=== PATIENT | male | born 1960 | race Caucasian/White ===

== ENCOUNTER 2018-06-15 08:12 | Emergency (ER) | payer OTHER, SELFPAY ==
[2018-06-15 08:19] VITALS: BP 111/86; PULSE 56; RESP 16; TEMP 36.5; O2SAT 99
--- NOTE | 2018-06-15 08:51 | DI.RAD_ITS ---
SYMPTOM/DIAGNOSIS: FELL, PAIN 5TH METACARPAL RIGHT HAND: Three views. There is an acute, mildly displaced oblique fracture through the shaft of the right fifth metacarpal. The fractures appears mildly comminuted. No other acute fracture or dislocation is identified. There is an old fracture of the proximal pole of the scaphoid. There is sclerosis of the small proximal fracture fragment which may represent avascular necrosis. No other fracture or dislocation is seen. There is soft tissue swelling about the hand. Degenerative changes are seen of the hand and wrist. There is chondrocalcinosis of the triangular fibrocartilage. IMPRESSION: Acute, mildly displaced comminuted fracture of the right fifth metacarpal.
--- NOTE | 2018-06-15 11:08 | W.ED.GENAD ---
Discharge Plan Disposition Patient Disposition: HOME Discharge Details Chief Complaint: Orthopedic Clinical Impression: Fracture of fifth metacarpal bone Primary Care Provider: [facility] Provider: Vladimir Martin Home Meds and New Rx's Prescriptions: Continue tramadol 50 MG tablet 50 mg PO BID RF: 0 Discharge Instructions Instructions: Hand Fracture (ED) Additional Instructions: Keep splint intact until you are able to follow-up. Please follow-up with your art therapy specialist. Call on Saturday. Discharge Data Discharge Date/Time-TO BE ENTERED AT DEPARTURE: 06/15/18 12:07 Medical Decision Making Medical Records 58yo m with injury to rt hand. Tender and swollen along 5th MC. N/V intact distal to injury. xray of the rt diane reviewed and interpreted by me: fracture 5th MC. Volar splint with ulnar gutter placed by me with hand in flexion to 90s at MCPs. Patient N/V intact post splint application. Offered local orthopedic follow-up and patient would prefer to f/u with his previously established art therapy specialist. Usual and customary d/c instructions provided including return to ER indications. HPI - General Adult General Date/Time Provider Initiated Documentation: 06/15/18 08:43. Limitations to Documentation: no limitations. Information obtained by: patient. HPI Narrative: 58yo m presents with cc hand pain. Pt fell 9 days ago from standing and caught hand in chair. Has had persistent pain in hand since fall. Pain described as ache. Localized to medial hand. Associated swelling. Pain worse on palpation. Pain not improving. No assoc numbness. Related Data Home Medications Medication Instructions Recorded Confirmed tramadol 50 mg PO BID 01/02/16 06/15/18 Allergies Allergy/AdvReac Type Severity Reaction Status Date / Time environmental Allergy Uncoded 06/15/18 08:22 General Stated Complaint: Orthopedic ALVIN: 4 Review of Systems Musculoskeletal Reports as per HPI Neurologic Reports as per HPI [facility] Social History Smoking/Tobacco Use Status: Former Tobacco Use Exam Const General: cooperative and no acute distress HENMT Head: normocephalic and atraumatic Mouth: moist mucous membranes Eyes Conjunctivae: normal conjunctivae Sclera: normal sclerae EOM: EOM intact bilaterally Neck Neck: trachea midline Cardio Rate: regular rate and not tachycardic Rhythm: regular rhythm Skin General skin exam: no rashes or lesions noted Neuro General: alert, awake, oriented x3 and tone normal Extrem Right upper extremity: hand Details: neuromotor exam normal, tenderness (5th MC) and swelling (medal hand) Psych Appearance: grossly normal Mental Status: mental status grossly normal Speech and Movement: speech and movement normal Course Vital Signs Temperature 36.5 C 06/15/18 08:19 Pulse 56 L 06/15/18 08:19 Respiratory Rate 16 06/15/18 08:19 Blood Pressure 111/86 06/15/18 08:19 Pulse Oximetry 99 06/15/18 08:19 Temperature 36.5 C 06/15/18 08:19 Pulse 56 L 06/15/18 08:19 Respiratory Rate 16 06/15/18 08:19 Blood Pressure 111/86 06/15/18 08:19 Pulse Oximetry 99 06/15/18 08:19
--- NOTE | 2018-06-15 11:18 | DI.VRAD_ITS ---
EXAM: XR Right Hand Complete, 3 or more Views EXAM DATE/TIME: 06/15/2018 8:52 AM CLINICAL HISTORY: 58 years old, male; Pain; Hand; Right TECHNIQUE: XR Right hand 3 or more views. COMPARISON: No relevant prior studies available. FINDINGS: Bones/joints: There is an acute, mildly displaced and comminuted fracture through the fifth metacarpal shaft. No apparent intra-articular involvement. The radiocarpal compartment is mildly narrowed. There appears to be a remote fracture involving the proximal aspect of the scaphoid. Very mild osteophyte formation is present about the first metacarpal phalangeal and multiple interphalangeal joints. Some chondrocalcinosis is noted in the region of the triangular fibrocartilage. Small sclerotic lesion in the distal radius has the appearance of a bone island. Soft tissues: There is associated soft tissue swelling over the ulnar aspect. IMPRESSION: 1. Acute fifth metacarpal fracture. 2. Degenerative changes as described. 3. Chondrocalcinosis, raising the possibility of calcium pyrophosphate dihydrate crystal deposition disease. Dictated and Authenticated by: Rashid Holloway MD. Ordering:BENOIT LEWIS MD
[2018-06-15 12:01] VITALS: BP 139/90; PULSE 50; RESP 16; O2SAT 97
--- NOTE | 2018-06-19 16:54 | ED.GENADUL_ITS ---
Discharge Plan Disposition Patient Disposition: HOME Discharge Details Chief Complaint: Orthopedic Clinical Impression: Fracture of fifth metacarpal bone Primary Care Provider: [facility] ED Provider: Vladimir Martin Home Meds and New Rx's Prescriptions: Continue tramadol 50 MG tablet 50 mg PO BID RF: 0 Discharge Instructions Instructions: Hand Fracture (ED) Additional Instructions: Keep splint intact until you are able to follow-up. Please follow-up with your family services specialist. Call on Saturday. Discharge Data Discharge Date/Time-TO BE ENTERED AT DEPARTURE: 06/15/18 12:07 Medical Decision Making Medical Records 58yo m with injury to rt hand. Tender and swollen along 5th MC. N/V intact distal to injury. xray of the rt diane reviewed and interpreted by me: fracture 5th MC. Volar splint with ulnar gutter placed by me with hand in flexion to 90s at MCPs. Patient N/V intact post splint application. Offered local orthopedic follow-up and patient would prefer to f/u with his previously established family services specialist. Usual and customary d/c instructions provided including return to ER indications. HPI - General Adult General Date/Time Provider Initiated Documentation: 06/15/18 08:43 . Limitations to Documentation: no limitations . Information obtained by: patient . HPI Narrative: 58yo m presents with cc hand pain. Pt fell 9 days ago from standing and caught hand in chair. Has had persistent pain in hand since fall. Pain described as ache. Localized to medial hand. Associated swelling. Pain worse on palpation. Pain not improving. No assoc numbness. Related Data Home Medications Medication Instructions Recorded Confirmed tramadol 50 mg PO BID 01/02/16 06/15/18 Allergies Allergy/AdvReac Type Severity Reaction Status Date / Time environmental Allergy Uncoded 06/15/18 08:22 General Stated Complaint: Orthopedic ALVIN: 4 Review of Systems Musculoskeletal Reports as per HPI Neurologic Reports as per HPI [facility] Social History Smoking/Tobacco Use Status: Former Tobacco Use Exam Const General: cooperative and no acute distress HENMT Head: normocephalic and atraumatic Mouth: moist mucous membranes Eyes Conjunctivae: normal conjunctivae Sclera: normal sclerae EOM: EOM intact bilaterally Neck Neck: trachea midline Cardio Rate: regular rate and not tachycardic Rhythm: regular rhythm Skin General skin exam: no rashes or lesions noted Neuro General: alert, awake, oriented x3 and tone normal Extrem Right upper extremity: hand Details: neuromotor exam normal, tenderness (5th MC ) and swelling (medal hand) Psych Appearance: grossly normal Mental Status: mental status grossly normal Speech and Movement: speech and movement normal Course Vital Signs Temperature 36.5 C 06/15/18 08:19 Pulse 56 L 06/15/18 08:19 Respiratory Rate 16 06/15/18 08:19 Blood Pressure 111/86 06/15/18 08:19 Pulse Oximetry 99 06/15/18 08:19 Temperature 36.5 C 06/15/18 08:19 Pulse 56 L 06/15/18 08:19 Respiratory Rate 16 06/15/18 08:19 Blood Pressure 111/86 06/15/18 08:19 Pulse Oximetry 99 06/15/18 08:19
== END 2018-06-15 12:07 | disposition home or self-care (01) ==
PROVIDERS: Emergency Provider Student in an Organized Health Care Education/Training Program
DX: S62.326A Displaced fracture of shaft of fifth metacarpal bone, right hand, initial encounter for closed fracture (principal); W13.9XXA Fall from, out of or through building, not otherwise specified, initial encounter
CPT/HCPCS: 26600; 73130

== ENCOUNTER 2025-06-13 08:59 | Emergency (ER) | payer OTHER, SELFPAY ==
[2025-06-13 09:05] VITALS: BP 120/75; PULSE 72; RESP 10; TEMP 36.6; O2SAT 98
--- NOTE | 2025-06-13 09:17 | W.ED.GENAD ---
Discharge Plan Disposition Patient Disposition: Home Condition: Stable Discharge Details Clinical Impression: Cerumen impaction Primary Care Provider: [facility] Provider: Afua Turcios Home Meds and New Rx's Prescriptions: New ofloxacin 0.3 % drops 10 drp otic (ear) BID 14 Days Qty: 5 0RF No Action tramadol 50 MG tablet 50 mg PO BID Discharge Instructions Instructions: Ear Wax Impaction ED Additional Instructions: You were seen in the emergency department today for evaluation of right ear pain found to be due to impacted earwax. The earwax was able to be removed, you have significant irritation of the ear canal itself which will require antibiotic eardrops. Please do not put anything in the ear, avoid swimming or other irritants, and follow-up with your outpatient providers at the [facility]. If this occurs frequently, you may need to use [id number] eardrops (Debrox) to soften earwax. You may also require referral by your primary care provider to ear nose and throat for periodic cleanings. Please follow-up with your primary care provider in the next few days to discuss this visit and any symptoms that change, worsen, or persist. Thank you for allowing us to be part of your care. HPI General Mode of arrival: ambulatory. Date/Time Provider Initiated Documentation: 06/13/25 09:01. Limitations to Documentation: no limitations. Information obtained by: patient and old records reviewed. HPI Narrative: This is a 65-year-old male patient with a past medical history significant for TBI, presenting for evaluation of right ear pain. The patient reports that his ear started to hurt yesterday, his tried to wash it out with peroxide and noted some yellow discharge, prompting him to seek care to be evaluated for your infection. He did state that at 1 point he felt off balance and dizzy, states that this has passed and he thought that it was due to the problem with his right ear. He denies vision changes, trauma, weakness or numbness. No trauma to the head or ears, does not use Q-tips, no recent swimming or water exposure. No history of diabetes. Related Data Home Medications ?Medication ?Instructions ?Recorded ?Confirmed tramadol 50 mg tablet 50 mg PO BID 01/02/16 06/13/25 ofloxacin 0.3 % ear drops 10 drp otic (ear) BID 14 days #5 mL 06/13/25 Previous Rx's ?Medication ?Instructions ?Recorded ofloxacin 0.3 % ear drops 10 drp otic (ear) BID 14 days #5 mL 06/13/25 Allergies Allergy/AdvReac Type Severity Reaction Status Date / Time environmental Allergy Intermediate Unknown Uncoded 06/13/25 09:09 General Stated Complaint: EarProblem ALVIN: 4 Exam Narrative Exam Narrative: Gen: Awake and alert, in no apparent distress HEENT: Non-icteric sclera, PERRL, EOMs are full. Right ear is completely wax occluded, no mastoid tenderness or swelling, left TM clear, external canal without erythema or exudate. Neck: Supple, full range of motion Lungs: No apparent respiratory distress, normal respiratory effort. CV: Appears well perfused, heart with regular rate and rhythm, strong distal pulse Abdomen: Non-distended MSK: Moves 4 extremities without apparent limitation in ROM Skin: Visualized skin without rashes, cyanosis. Neuro: Normal Gait, cranial nerves II through XII intact and symmetrical bilaterally, 5 out of 5 strength x 4 extremities, no sensory deficits. Speaks in full, clear sentences. Psych: Appropriate for situation. Course Vital Signs Vital signs: Vital Signs Temperature 36.6 C 06/13/25 09:05 Pulse 72 06/13/25 09:05 Respiratory Rate 10 L 06/13/25 09:05 Blood Pressure 120/75 06/13/25 09:05 Pulse Oximetry 98 06/13/25 09:05 Temperature 36.6 C 06/13/25 09:05 Temperature Source Oral 06/13/25 09:05 Pulse 72 06/13/25 09:05 Respiratory Rate 10 L 06/13/25 09:05 Blood Pressure 120/75 06/13/25 09:05 Blood Pressure Position Sitting 06/13/25 09:05 Pulse Oximetry 98 06/13/25 09:05 Oxygen Delivery Method Room Air 06/13/25 09:05 Oxygen Flow Rate 0 06/13/25 09:05 Procedure Ear Wax Removal Date of Procedure: 06/13/25 Time of Procedure: 10:00 Provider that performed the procedure: Afua Turcios Indication: Pain Standard Time Out Performed: No Patient Consented: Verbally Cerumenolytic Used: Cerumenex Results: Re-examined: cerumen removed completely TM Visible: TM(s) erythematous Ear Canal: atraumatic Patient Tolerated Procedure: well and no complications Technique: ear canal irrigated and ear canal curetted Medical Decision Making This is a 65-year-old male patient presenting for evaluation of right ear pain. My differential includes but is not limited to wax occlusion, certainly considered otitis externa, otitis media. Exam less concerning for mastoiditis. No fever or systemic symptoms nor diabetic history to suggest malignant otitis externa. The patient's brief balance episode was likely in the setting of his ear problem, he has no neurodeficits or alterations in gait at this time to increase my concern for intracranial hemorrhage, stroke, mass. We will attempt to clear the occluded wax to allow for visualization of the right eardrum using Debrox and irrigation. - After irrigation and manual removal of earwax with curettes as noted above, and was able to visualize the TM completely. He does have some mild erythema without bulging or rupture, external canal is slightly indurated and erythematous. I provided the patient with ofloxacin drops and counseled him to avoid manipulating or putting anything in the ear canal. He will [facility] and I counseled him on potential future management with Debrox, ear nose and throat for earwax cleanout, etc. At this time, the patient has had a full medical evaluation and is safe for discharge to home. They are hemodynamically stable, ambulatory, and tolerating PO. They are understanding of the follow-up plan and return precautions. They left our facility without incident. Afua Turcios MD [facility] All Active Problems (Updated 06/13/25 @ 10:08 by Afua Turcios MD) Cerumen impaction (Acute) Influenza (Acute) Strep pharyngitis (Acute) URI (upper respiratory infection) (Acute) Social History Smoking/Tobacco Use Status: Former Tobacco Use Smoking risk assessment performed?: Yes Alcohol Intake: never Drug use: Never Substance use type: does not use Do you feel safe at home: Yes Do you feel safe in your relationship?: Yes
[2025-06-13] MEDS: Carbamide Peroxide 15 ML BTL AD (09:22)
[2025-06-13] MEDS: Ofloxacin 0.3% OTIC 5 ML BTL AD (10:20)
== END 2025-06-13 10:25 | disposition home or self-care (01) ==
LOC: ER 10:27
PROVIDERS: Emergency Provider Emergency Medicine
DX: H92.01 Otalgia, right ear; H61.21 Impacted cerumen, right ear
CPT/HCPCS: 69210; 99283